=== PATIENT | male | born 1985 | race Caucasian/White ===

== ENCOUNTER 2016-05-24 07:05 | Outpatient (CLI) | payer BC ==
[2016-05-24] VITALS (11 sets, daily range): BP systolic 119–150; BP diastolic 72–94
[~2016-05-24] VITALS: Ht 188 cm; Wt 89.4 kg
[2016-05-24 07:38] LABS: BASO # 0.1 x10^3/uL (0.0-0.2); BASO % 1 % (0-3); EOS % 2 % (0-3); HEMATOCRIT 46.1 % (39.0-53.0); HEMOGLOBIN 15.4 g/dL (13.0-17.5); LYMPH # 2.9 x10^3/uL (1.0-4.8); LYMPH % 37 % (24-48); MEAN CORPUSCULAR HEMOGLOBIN 28 pg (25-35); MEAN CORPUSCULAR HGB CONC 33 g/dL (31-37); MEAN CORPUSCULAR VOLUME 84 fL (79-100); MONO % 9 % (0-9); NEUT % 51 % (31-73); PLATELET COUNT 240 x10^3/uL (140-400); RED BLOOD COUNT 5.52 x10^6/uL (4.30-5.70); RED CELL DISTRIBUTION WIDTH 14.2 % (11.5-14.5)
[2016-05-24] MEDS ORDERED: zoloft PO (07:48)
[2016-05-24 07:56] LABS: INR 1.1 (0.8-1.1); PROTHROMBIN TIME PATIENT 13.1 SEC (11.7-14.0)
[2016-05-24] MEDS ORDERED: LIDOCAINE 1% / SOD BICARB 8.4% 20 ML VIAL. IJ ONE ×2 (08:15→08:45)
[2016-05-24] MEDS ORDERED: MIDAZOLAM HCL/PF 5 MG/5 ML VIAL ONE (08:36)
[2016-05-24] MEDS ORDERED: FENTANYL PF 250 MCG/5 ML VIAL. ONE (08:36)
[2016-05-24] MEDS ORDERED: MIDAZOLAM HCL/PF 5 MG/5 ML VIAL IV ONE (08:45)
[2016-05-24] MEDS ORDERED: FENTANYL PF 250 MCG/5 ML VIAL. IV ONE (08:45)
--- NOTE | 2016-05-24 09:05 | PDOC ---
MODERATE SEDATION ASSESSMENT RISKS/ALTERNATIVES Risks/Alternatives Risks and alternatives of this type of sedation and procedure discussed with: RISK/ALTERNATIVES: Patient H & P ON CHART H & P H & P on chart and reviewed for co-morbid conditions and appropriate labs. H&P ON CHART: Yes STATUS PREG STATUS ASSESSED: N/A MEDS/ALLERGIES REVIEWED Meds/Allergies Reviewed Medications and Allergies including time and route of recently administered narcotics and sedatives. MEDS/ALLERGIES REVIEWED: Yes ASA RATING ASA RATING: I AIRWAY ASSESSMENT Airway Assessment Airway patency, oral function limitations, presence of caps, crowns, dentures, partials, and ability to extend neck assessed. AIRWAY ASSESSMENT: Yes MALLAMPATI SCORE MALLAMPATI SCORE: II PRE-SEDATION ASSESSMENT PRE-SEDATION ASSESSMENT: Yes SEVERIANO ELIAZLDE MD May 24, 2016 09:05
--- NOTE | 2016-05-24 09:07 | PDOC1 ---
History and Physical Date of Procedure Date of Admission 05/24/[address] guided bone marrow asp/bx Indication Indication 30 YO male with erythrocytosis Past Medical History Past Medical History See Nursing Pre Procedure PMH Past Surgical History Past Surgical History See Nursing Pre Procedure PSH Current Medications Current Medications Current Medications Lidocaine/Sodium Bicarbonate (Buffered Lidocaine 1%) 20 ml 1X ONCE IJ Last administered on 05/24/16 09:00; Start 05/24/16 at 08:15; Stop 05/24/16 at 08:16 ; Status DC Midazolam HCl (Versed) 5 mg STK-MED ONCE .ROUTE ; Start 05/24/16 at 08:36; Stop 05/24/16 at 08:37; Status DC Fentanyl Citrate (Fentanyl 5ml Vial) 250 mcg STK-MED ONCE .ROUTE ; Start at 08:36; Stop 05/24/16 at 08:37; Status DC Lidocaine/Sodium Bicarbonate (Buffered Lidocaine 1%) 20 ml 1X ONCE IJ ; Start 05/24/16 at 08:45; Stop 05/24/16 at 08:51; Status DC Midazolam HCl (Versed) 5 mg 1X ONCE IV Last administered on 05/24/16 09:00; Start 05/24/16 at 08:45; Stop 05/24/16 at 08:51; Status DC Fentanyl Citrate (Fentanyl 5ml Vial) 250 mcg 1X ONCE IV Last administered on 08:45; Start 05/24/16 at 08:45; Stop 05/24/16 at 08:51; Status DC Active Scripts Active Reported [zoloft] PO DAILY Allergies Allergies: Coded Allergies: cefaclor (Verified Allergy, Intermediate, Rash, 05/24/16) Physical Exam Vital Signs Vital Signs Date Time Temp Pulse Resp B/P Pulse Ox O2 Delivery O2 Flow Rate FiO2 05/24/16 09:01 112 9 94 Nasal Cannula 2.0 05/24/16 07:51 137/83 05/24/16 07:43 97.9 97.9 Lungs: Clear to auscultation Heart: Regular rate Psych/Mental Status: Mental status NL Assessment Assessment 30 YO male with unexplained erythrocytosis Problems: Plan Plan CT guided bone marrow asp/bx, as requested by heme-onc. SEVERIANO ELIZALDE MD May 24, 2016 09:07
--- NOTE | 2016-05-24 09:10 | PDOC ---
Exam Talent Agent Talent Agent Topher Hand Carver Hand Carver Walker Butcher Pre-Procedure Diagnosis Pre-Procedure Diagnosis 30 YO male with unexplained erythrocytosis Post-Procedure Diagnosis Post-Procedure Diagnosis Same Procedure Performed Procedure Performed CT guided bone marrow asp/bx Type of Anesthesia Type of Anesthesia Local + Mod sedation Estimated Blood Loss EBL: Minimal Specimens Specimans 6 cc bone marrow aspirate + 1 11G core bx -----to heme-path Condition of Patient Condition of Patient Stable. No apparent complication. Disposition Disposition Home from [facility] post recovery, if no problems. F/u with Dr Torres. Full report to follow. SEVERIANO ELIZALDE MD May 24, 2016 09:10
--- NOTE | 2016-05-25 06:58 | RAD ---
CT-guided power drill assisted bone marrow aspiration and biopsy Indication: 30-year-old male with unexplained erythrocytosis. Image guided bone marrow aspirate/biopsy has been requested by hematology-oncology. Anesthesia: 20 minutes moderate sedation was provided utilizing a total of 4 mg Versed and 200 mcg fentanyl, IV. The patient was appropriately monitored by a qualified independent observer throughout the time of moderate sedation. Procedure: Informed consent was obtained from the patient. He was placed prone on the CT scanner. Preliminary noncontrast CT images were obtained through pelvis. A left posterior skin site suitable for CT-guided bone marrow aspirate/biopsy from posterior left iliac bone was selected and marked. That area was prepped and draped in the usual sterile fashion. Conscious sedation was provided with IV Versed and fentanyl. Using aseptic technique, local anesthesia, and CT guidance, and the [employer] power airport shuttle driver, successful percutaneous entry was achieved through posterior cortex of left iliac bone. Approximately 6 cc of bone marrow was promptly aspirated, and was submitted to hematology personnel in the CT suite. Using CT guidance, the [employer] power airport shuttle driver was then utilized to obtain a single, 11-gauge core biopsy sample from marrow cavity of left iliac bone. The biopsy sample was submitted to pathology in formalin. A sterile dressing was applied over the biopsy skin puncture site. Patient tolerated the procedure well without apparent complication. Impression: Successful, uneventful CT-guided bone marrow aspirate and biopsy, utilizing the [employer] power airport shuttle driver biopsy system, as described. PQRS compliance statement: One or more of the following individualized dose reduction techniques were utilized for this CT procedure: 1. Automated exposure control. 2. Adjustment of MA and/or KV according to patient size. 3. Iterative reconstruction technique.
== END 2016-05-24 10:45 | disposition home or self-care (01) ==
LOC: INTRAD 07:05
PROVIDERS: ATTEND Internal Medicine Hematology & Oncology
DX: D75.1 Secondary polycythemia (principal); F41.9 Anxiety disorder, unspecified; J45.909 Unspecified asthma, uncomplicated; Z79.01 Long term (current) use of anticoagulants
CPT/HCPCS: 36415; 38221; 77012; 85027; 85610; 88184; 88185; 88237; G0364; J2250; J3010